=== PATIENT | female | born 1960 | race Caucasian/White ===

== ENCOUNTER → 2021-07-27 15:38 | Outpatient (BNVA) | payer MEDICAID, SELFPAY | PROVIDERS: Family Provider Registered Nurse; PCP Registered Nurse; Visit Provider Nurse Practitioner | DX: Z20.822 Contact with and (suspected) exposure to COVID-19 (principal) | CPT/HCPCS: 87635 ==

== ENCOUNTER → 2021-10-26 14:11 | Outpatient (BNVA) | payer MEDICARE, MEDICAID, SELFPAY | PROVIDERS: Family Provider Registered Nurse; PCP Registered Nurse; Referring Provider Family Medicine; Visit Provider Specialist | DX: M25.551 Pain in right hip (principal); M16.11 Unilateral primary osteoarthritis, right hip | CPT/HCPCS: 73502 ==

== ENCOUNTER 2021-12-17 07:13 | Outpatient (CLI) | payer MEDICARE, MEDICAID, SELFPAY ==
--- NOTE | 2021-12-17 07:18 | MR_ITS ---
WS: [id number] MRI RIGHT HIP without CONTRAST. COMPARISON: Hip radiograph 10/26/1999 Multiplanar, multisequence imaging is performed without contrast. Mild narrowing of the RIGHT hip joint. There is surface irregularity involving the cortex of the femo ral head and also the acetabulum which is asymmetric to the LEFT hip. There is very mild flattening o f the femoral head and a more focal osteophyte protruding laterally. With history of trauma this coul d be from an old injury. At this time no avascular necrosis is identified. There is a small amount of marrow edema in the medial anterior acetabulum. Small focal area of marrow edema in the adjacent medial femoral head. There is a lobulated cystic mass extending medially into the muscles surrounding the hip. There are multiple cystic components with small loose bodies within the lobulated mass. The largest component measures 3.9 x 2.3 cm. I favor this is probably a paralabra l cyst. The labrum demonstrates degeneration throughout. Exact source of the tear is not confirmed. The LEFT hip is negative. MR/MR hip RT wo con* [id number] IMPRESSION: 1. Moderate degenerative changes at the RIGHT hip joint. Loss of the normal ca rtilage with mild flattening of the femoral head and lateral osteophyte. These findings are asymmetric to the LEFT hip. 2. Large lobulated cystic mass with internal debris extends from the medial in ferior hip joint into the soft tissues. The largest component of this mass is 3 .9 x 2.3 cm. This is most likely paralabral cyst. Exact location of the tear is not evident. There is a very small trace of fluid extending into the hip joint along the inferior surface of the femoral head. 3. Small amount of marrow edema in the anteromedial acetabulum and adjacent me dial femoral head. Probably reactive from the joint space narrowing and repetit ac trauma.
== END 2021-12-17 07:14 | disposition home or self-care (01) ==
LOC: RAD 07:14
PROVIDERS: Family Provider Registered Nurse; PCP Family Medicine; Visit Provider Specialist
DX: M16.11 Unilateral primary osteoarthritis, right hip (principal); R60.0 Localized edema
CPT/HCPCS: 73721

== ENCOUNTER → 2022-06-23 10:48 | Outpatient (BNVA) | payer MEDICARE, MEDICAID, SELFPAY | PROVIDERS: Family Provider Registered Nurse; PCP Family Medicine; Visit Provider Specialist | DX: M16.11 Unilateral primary osteoarthritis, right hip (principal) | CPT/HCPCS: 73502; 99214 ==

== ENCOUNTER 2022-07-06 13:26 | Observation (INO) | payer MEDICARE, MEDICAID, SELFPAY ==
[2022-06-29 13:18] VITALS: BMI 23.8
[2022-06-29 13:39] LABS: Basophils # 0.1 10^3/uL (0.0-0.1); Basophils % 0.6 %; Eosinophils # 0.1 10^3/uL (0.0-0.8); Eosinophils % 0.6 %; Hematocrit 46.4 % (37.0-47.0); Hemoglobin 15.2 g/dL (11.5-15.3); Lymphocytes # 3.6 10^3/uL (0.8-4.8); Lymphocytes % 38.7 %; Mean Corpuscular HGB Conc 32.8 g/dL (30.0-36.0); Mean Corpuscular Hemoglobin 30.6 pg (28.0-34.0); Mean Corpuscular Volume 93.4 fl (81-99); Mean Platelet Volume 9.8 fL (7.4-10.4); Monocytes # 0.4 10^3/uL (0.2-0.9); Monocytes % 4.4 %; Neutrophils # 5.19 10^3/uL (1.8-7.7); Neutrophils % 55.5 %; Nucleated Red Blood Cells % 0 %; Platelet Count 273 10^3/cmm (130-400); Red Blood Count 4.97 10^6/uL (4.1-5.3); Red Cell Distribution Width 13.2 % (12.1-15.1); White Blood Count 9.4 10^3/uL (4.0-10.0)
[2022-06-29 13:51] LABS: Add Urine Culture? Yes; Add Urine Microscopic? YES; Bacteria Urine 2+ /hpf; Bilirubin Urine Neg (Negative); Blood Urine 2+ (Negative); Glucose Urine UA Norm (Normal); Ketones Urine Negative (Negative); Leukocyte Esterase Urine Negative (Negative); Nitrate Urine Negative (Negative); Protein Urine Neg (Negative); RBC Urine 0-4 /hpf (0-2); Squamous Epithelial Cell Urine 0-4 /hpf (0-5); Urine Appearance Clear (CLEAR); Urine Color Yellow (Yellow); Urobilinogen Urine Norm (Negative); WBC Urine 0-4 /hpf (0-5); pH Urine 7 (5-7)
[2022-06-29 14:09] LABS: Alanine Aminotransferase 12 U/L (0-33); Alkaline Phosphatase 115 U/L (35-105); Aspartate Amino Transferase 25 U/L (0-32); Blood Urea Nitrogen 9 mg/dL (8-23); Calcium 9.1 mg/dL (8.5-10.5); Carbon Dioxide 24 mmol/L (22-29); Chloride 99 mmol/L (98-107); Creatinine Clr Calc Pharmacy 72.3806; Globulin 2.8 g/dL (1.3-4.6); Glomerular Filtration Rate 85.4 mL/min (90-130); Glucose 84 mg/dL (65-115); Osmolality Calculated 276 mOsm/kg (285-295); Sodium 134 mmol/L (136-145); Total Bilirubin 0.3 mg/dL (0.15-1.2); Total Protein 6.8 g/dL (6.6-8.7)
[2022-06-29 14:12] LABS: Anion Gap 15.4 (5-19); Potassium 4.4 mmol/L (3.5-5.1)
--- NOTE | 2022-06-29 14:30 | ANES.PREANE2 ---
Pre-Anesthetic Assessment Height/Weight: Height 1.57 m Weight 58.967 kg Preop Diagnosis: OA right hip Operation Date: 07/06/22 10:50 Proposed Procedures p RIGHT TOTAL HIP ARTHROPLASTY 52829,M16.9(Right) - Tona Gannon MD Familial anesthetic complications: PONV Was Beta Fernando taken within 24 hours: N/A Was Clonidine taken within 24 hours: N/A Social No alcohol Former smoker Exam alert, oriented x 3, clear to auscultation bilaterally and regular rate & rhythm Airway Submandibular: within normal limits Cervical ROM: within normal limits Mallampati: Class I Dentition: false History/ROS No significant complaints Pulmonary None reported CV/HEM None reported METS > 4 None reported Hepatic None reported GI Gastroesophageal Reflux Disease (Well controlled ) Metabolic None reported Musc/skel None reported Neuropsych None reported Anesthetic Plan ASA status: 2 Anesthesia: Anesthesia Evaluation and General Other: We discussed risk and benefits of general vs spinal anesthesia including DVT risk, infection, paralysis/catastrophic nerve injury, back bruising/pain, PDPH, conversion to general in case of spinal, PONV, sore throat (sometimes severe), corneal abrasion, positioning and peripheral nerve injuries, life threatening allergic reaction, post operative ICU admission requiring prolonged intubation, stroke, heart attack, , post operative delirium and/or post operative cognitive decline, and rare incidences of recall (under general anesthesia). Patient prefers general anesthetic, plan multimodal anti-emetics for hx of PONV Risk of > 500 ml blood loss (7ml/kg in children): No Medications/Allergies Home Medications Medication Instructions Recorded Confirmed Last Taken Type naproxen 500 mg tablet 500 mg PO BID 10/26/21 06/29/22 Unknown History quetiapine 50 mg tablet 50 mg PO BID 06/29/22 06/29/22 Unknown History Allergies Allergy/AdvReac Type Severity Reaction Status Date / Time No Known Allergies Allergy Verified 06/23/22 10:53 [facility] Anesthesia Medical History Insomnia disorder Recurrent cold sores Smoking addiction Family History Other Cancer Hypertension Social History Smoking and tobacco status: current some day smoker Data Anesthesia : 06/29/22 13:23 06/29/22 13:23 Short CBC 06/29/22 Range/Units 13:23 WBC 9.4 (4.0-10.0) 10^3/uL Hgb 15.2 (11.5-15.3) g/dL Hct 46.4 (37.0-47.0) % MCV 93.4 (81-99) fl Plt Count 273 (130-400) 10^3/cmm Neut % (Auto) 55.5 % Neut # (Auto) 5.19 (1.8-7.7) 10^3/uL BMP 06/29/22 13:23 Sodium 134 L Potassium 4.4 Chloride 99 Carbon Dioxide 24 BUN 9 Creatinine 0.7 Glucose 84 Calcium 9.1 Liver Function 06/29/22 Range/Units 13:23 Total Bilirubin 0.3 (0.15-1.2) mg/dL AST 25 (0-32) U/L ALT 12 (0-33) U/L Alkaline Phosphatase 115 H (35-105) U/L Albumin 4.0 (3.5-5.2) g/dL Urine 06/29/22 Range/Units 13:23 Urine Color Yellow (Yellow) Urine Appearance Clear (CLEAR) Urine pH 7 (5-7) Ur Specific [place] 1.000 L (1.005-1.030) Urine Protein Neg (Negative) Urine Glucose (UA) Norm (Normal) Urine Ketones Negative (Negative) Urine Nitrate Negative (Negative) Urine Bilirubin Neg (Negative) Ur Leukocyte Esterase Negative (Negative) Urine RBC 0-4 H (0-2) /hpf Urine WBC 0-4 H (0-5) /hpf Cardiac Studies: No Data to Display
[2022-07-06] VITALS (21 sets, daily range): BP systolic 110–143; BP diastolic 63–90; PULSE 72–96; RESP 12–19; TEMP 36.1–36.6; O2SAT 92–100; BMI 23.8
--- NOTE | 2022-07-06 08:03 | P.ANESUD_ITS ---
Pre-Anesthetic Update Pre-Anesthetic Assessment: Date of Surgery/Procedure: 07/06/22 Preop Farideh gnosis: OA right hip Proposed Procedure: Operation Date: 07/06/22 10:50 Proposed Procedures p RIGHT TOTAL HIP ARTHROPLASTY 16318,M16.9(Right) - Tona Gannon MD Any changes to Pre-Anesthetic Assessment?: No Last Intake: 07/05/22 Exam: Pre-Anes Outpt Exam: alert, oriented x 3, clear to auscultation bilaterally and regular rate & rhythm Cardiac Studies: No Data to Display
[2022-07-06] MEDS: sodium chloride 0.9% 1,000 ML 30 ML IV (10:11)
[2022-07-06] MEDS: acetaminophen 1,000 MG/100 ML PIGGYBACK 400 MG IV ×2 (10:12→17:21)
[2022-07-06] MEDS: scopolamine 1.5 Patch 1 PATCH TRANSDERMA (10:13)
[2022-07-06] MEDS: CELEcoxib 200 mg Capsule 400 MG PO (10:13)
--- NOTE | 2022-07-06 10:42 | W.PM.OPSUD ---
Surgery/Procedure H&P Update DATE OF PROCEDURE: July 06, 2022 DATE H&P PERFORMED: 06/23/22 H&P UPDATE INFORMATION: I have reviewed H&P completed within last 30 days, I have examined patient prior to procedure, No changes to prior documentation and H&P is in [facility] EMR on date indicated PREOP DIAGNOSIS: Primary osteoarthritis right hip PLANNED PROCEDURE: Operation Date: 07/06/22 10:50 Proposed Procedures p RIGHT TOTAL HIP ARTHROPLASTY 56593,M16.9(Right) - Tona Gannon MD Related Problem List Diagnoses (1) Primary osteoarthritis of right hip:
[2022-07-06] MEDS: ceFAZolin 2,000 MG in sodium chloride 0.9% (plus) 50 ML 100 MG IV ×2 (10:44→18:35)
[2022-07-06] MEDS: magnesium sulfate premix 2 GM/50 ML PIGGYBACK IV (10:59)
[2022-07-06] MEDS: ceFAZolin 1,000 mg SDV 1000 MG IRRIGATION (11:40)
[2022-07-06] MEDS: vancomycin 1,000 MG SDV 1000 MG XX (11:40)
[2022-07-06] MEDS: tranexamic acid 1,000 mg/10mL SDV 1000 MG IV (12:18)
--- NOTE | 2022-07-06 13:08 | P.OP_ITS ---
Operative Report Date of procedure: July 06, 2022 Pre-op diagnosis: Primary osteoarthritis right hip Post-op diagnosis: Primary osteoarthritis right hip Post-op findings: Severe degenerative osteoarthritis right hip Procedure done: Right total hip arthroplasty Implants: The [place] total hip system with the following implants: A 52 mm by E Trident II solid back acetabular shell, an MDM cementless liner 42 mm inner diameter by E alpha code and Accolade II size 3 with 127 degree neck angle hip stem with a 28 mm outer diameter +0 mm neck offset and a mormon X3 insert size 28 mm inner diameter by 42E Specimens removed/disposition: Bone, disposed of Pathology: none sent Surgeon: Tona Gannon Senior Genetic Counselor: [facility] operating room technicians Anesthesia: General (Intubated, ASA 2) Estimated blood loss (mL): 300 IV fluids (mL): 800 Urine output (mL): 700 Complications: None Findings: There was significant degenerative osteoarthritis with small loose bodies upon entry into the hip joint. Following the surgical procedure, the hip is stable at 90 degrees of flexion with 30 degrees of adduction and 80 degrees of internal rotation. Leg lengths appear to be equal. Condition: stable Disposition: PACU (Then to floor for postoperative rehabilitation and pain management) Brief History: This is an established 61 year old female patient who presented to my office with severe right hip pain secondary to degenerative osteoarthritic changes. Upon initial evaluation, the patient had teeth that needed pulled, and this has been addressed. She describes significant limitations in her activities of daily living. Patient states she is having pain to the hip during every day activities such as walking. Patient states the pain increases at night with certain movements and she cannot sleep. The patient wished to proceed with operative intervention. Risks and complications were discussed with her. Consents were signed preoperatively, and questions were answered. Procedure: Patient was brought to the operating theater.? She was transferred to the operating room table.? The patient had a general anesthetic, intubated, ASA 2 uneventfully.? Following administration of adequate anesthesia, the patient was placed in full lateral position and held in position with a pegboard.? The patient's right lower extremity was then prepped and draped in usual fashion utilizing DuraPrep.? It was draped free.? Following prepping and draping, a surgical pause was performed. At the time of surgical pause, we identified the site and side of surgery.? We also identified the patient and preoperative surgical markings.? Confirmation was made of equipment availability.? Additionally, the patient's preoperative IV antibiotic, Ancef 2 g, was confirmed as being given in a timely fashion and being the appropriate antibiotic.? She received TXA 1 g preoperatively as well 1 g postoperatively. Following the surgical pause, an incision was made centering over the patient's greater trochanter continuing proximally and distally as necessary to allow access to the hip joint.? Dissection continued through skin and soft tissues using a scalpel, and hemostasis was obtained using electrocautery. The tensor fascia jose was identified and incised longitudinally.? Sciatic nerve was identified and protected throughout the surgical procedure.? A Charnley U retractor was placed after the tensor fascia jose had been incised longitudinally, and the sciatic nerve had been identified.? The piriformis muscle was identified and tagged. Piriformis muscle along with the remaining short external rotators were then incised from the posterior aspect of the hip joint. These were retracted posteriorly. ? The capsule was entered in a T-type fashion with the edges being tagged.? The hip was then dislocated. Following hip dislocation, a femoral neck osteotomy was accomplished in the appropriate position. We then evaluated the acetabulum.? We noted we were able to deepen slightly. Following femoral neck osteotomy, the femur was retracted anteriorly.? Soft tissues were retracted and the labrum was removed.? Soft tissues were removed from within the acetabulum prior to the reaming process.? We then began reaming.? We deepened the acetabulum utilizing a smaller reamer.? Evaluation of the acetabulum was accomplished, and we were able to ream to 51 mm to allow for a size 52 mm acetabular shell. The acetabular component was impacted into position. It was noted that the acetabulum matched the bony anatomy.? The cup was noted to seat nicely and had good fixation upon impact.? The MDM cementless liner was impacted into position and care was taken to assure that it completely seated.? Attention was directed to the proximal femur.? The proximal femur was lifted out of the wound with difficulty.? A canal finder was passed, and we then used the reamer to lateralize.? We then began broaching. We broached sequentially, and initially, trial reductions were accomplished with a size 4 stem. This was noted to be too tight for reduction, and it was felt that we would over lengthen the leg. Therefore, the size 3 broach was again used and seated further into the femoral canal. A calcar reamer was then used. With the size 3 broach, we had excellent fit and fill with the 127 degree neck angle.? A trial reduction was accomplished initially with a size +0 mm offset femoral head.? The patient was stable with this construct, and it was not felt that we had significantly increased her leg length.? With this in place, we had the above stabilities, and at that time, we felt that we had restored normal leg lengths.? We also felt that we had excellent stability noted above. Therefore, trial components were removed after the hip was dislocated.? The size 3 Accolade II 127 degree neck angle hip stem was impacted into position without difficulty and onto this was placed a +0 mm offset by 28 mm outer diameter femoral head inside of the MDM size 42E insert with a 28 mm inner diameter.? With this construct, we had the above-noted stability.? The stem was noted to seat nicely prior to placement of the femoral head.? The wound was copiously irrigated with Betadine.? At this time, with all components in appropriate position, the hip was reduced.? Following reduction of the prosthesis once again, we confirmed the stability of the hip.? Leg lengths were also felt to be satisfactory. Being satisfied with the prosthesis, attention was directed to closure.? Closure was accomplished with 0 Vicryl in the capsular tissues.? Piriformis was reattached with 0 Vicryl as well.? Tensor fascia jose was closed with 0 Vicryl in an interrupted fashion.? The subcutaneous tissues were closed with 1 deeper 0 Vicryl suture followed by 2-0 Monocryl.? Vancomycin powder and a Gelfoam thrombin mixture was placed into the wound as well.? The skin was closed with 4- 0 Monocryl followed by Dermabond, Prineo, and OpSite.? The patient was placed in an abduction pillow.? She was returned the Recovery Room in a satisfactory condition and will be discharged to the floor for postoperative rehabilitation and pain management.? There were no complications. Related Problem List Diagnoses (1) Primary osteoarthritis of right hip: (2) Status post total hip replacement, right:
--- NOTE | 2022-07-06 13:27 | XRR_ITS ---
PROCEDURE INFORMATION: Exam: XR Pelvis Exam date and time: 07/06/2022 1:33 PM Age: 61 years old Clinical indication: Device placement; Other: Right total hip; Prior surgery; Surgery date: Post-operative (0-2 days); Additional info: Status post right total hip, low ap pelvis TECHNIQUE: Imaging protocol: Radiologic exam of the pelvis. Views: 1 or 2 view. COMPARISON: CR XR hip RT 2-3V wo/w pel* [id number] 06/23/2022 10:55 AM FINDINGS: Bones/joints: The patient has had a right bipolar hip arthroplasty. Alignment of the prosthetic elements appears normal. No fracture. No dislocation. No periprosthetic lucency. Soft tissues: Postoperative soft tissue changes present. XR/XR pelvis 1-2V* [id number] IMPRESSION: Postoperative changes.
[2022-07-06] MEDS: fentaNYL 50 mcg/mL INJ 2mL IVP ×2 (13:55→14:19)
--- NOTE | 2022-07-06 16:18 | ANE.PACU2 ---
Inpatient post-anesthesia follow up: Airway intact: Yes Vital signs: Temperature 97.5 F Pulse Rate 83 Respiratory Rate 16 Blood Pressure 128/80 Pulse Oximetry 95 Oxygen Delivery Me thod Room Air Oxygen Flow Rate Fraction of Inspir ed Oxygen Hydration adequate: Yes Nausea and vomiting: No Pain level: 4 Mental status: Baseline
[2022-07-06] MEDS: iron polysaccharide complex 150 mg Capsule PO (17:21)
[2022-07-06] MEDS: sennosides-docusate Tablet 2 TAB PO (17:21)
[2022-07-06] MEDS: oxyCODONE 5 mg IR Tab/Cap PO (17:21)
[2022-07-06] MEDS: calcium carbonate 500 mg Chew Tablet 1000 MG PO (17:21)
[2022-07-06] MEDS: quetiapine 25 mg Tablet 50 MG PO (17:21)
[2022-07-06] MEDS: chlorhexidine gluconate 0.12% Btl 473 mL 30 ML MUCOUS MEM ×2 (18:34→22:09)
[2022-07-06] MEDS: mupirocin oint 22 gm 1 APPLIC NASAL (18:34)
[2022-07-06] MEDS: CELEcoxib 200 mg Capsule PO (22:10)
[2022-07-07] VITALS (7 sets, daily range): BP systolic 115–152; BP diastolic 70–78; PULSE 62–77; RESP 16–22; TEMP 36.4–36.8; O2SAT 95–99
[2022-07-07] MEDS: acetaminophen 1,000 MG/100 ML PIGGYBACK 400 MG IV ×2 (01:58→09:57)
[2022-07-07] MEDS: ceFAZolin 2,000 MG in sodium chloride 0.9% (plus) 50 ML 100 MG IV ×2 (02:09→10:21)
[2022-07-07 05:16] LABS: Basophils % 0.2 %; Hematocrit 41.4 % (37.0-47.0); Hemoglobin 13.3 g/dL (11.5-15.3); Lymphocytes # 2.3 10^3/uL (0.8-4.8); Lymphocytes % 17.6 %; Mean Corpuscular HGB Conc 32.1 g/dL (30.0-36.0); Mean Corpuscular Hemoglobin 30.7 pg (28.0-34.0); Mean Corpuscular Volume 95.6 fl (81-99); Mean Platelet Volume 9.7 fL (7.4-10.4); Monocytes # 1.2 10^3/uL (0.2-0.9); Monocytes % 9.1 %; Neutrophils # 9.42 10^3/uL (1.8-7.7); Neutrophils % 72.8 %; Nucleated Red Blood Cells % 0 %; Platelet Count 275 10^3/cmm (130-400); Red Blood Count 4.33 10^6/uL (4.1-5.3); Red Cell Distribution Width 13.6 % (12.1-15.1); White Blood Count 12.9 10^3/uL (4.0-10.0)
[2022-07-07 05:33] LABS: Anion Gap 15.6 (5-19); Blood Urea Nitrogen 10 mg/dL (8-23); Calcium 8.7 mg/dL (8.5-10.5); Carbon Dioxide 21 mmol/L (22-29); Chloride 103 mmol/L (98-107); Glomerular Filtration Rate 73.2 mL/min (90-130); Glucose 121 mg/dL (65-115); Osmolality Calculated 280 mOsm/kg (285-295); Potassium 4.6 mmol/L (3.5-5.1); Sodium 135 mmol/L (136-145)
[2022-07-07] MEDS: oxyCODONE 5 mg IR Tab/Cap PO ×2 (08:01→15:03)
[2022-07-07] MEDS: multivitamin therapeutic Tablet 1 TAB PO (08:46)
[2022-07-07] MEDS: cholecalciferol (vitamin D3) 1,000 unit Tablet 1000 UNIT PO (08:46)
[2022-07-07] MEDS: aspirin 325 mg EC Tablet PO (08:46)
[2022-07-07] MEDS: sennosides-docusate Tablet 2 TAB PO (08:46)
[2022-07-07] MEDS: calcium carbonate 500 mg Chew Tablet 1000 MG PO (08:46)
[2022-07-07] MEDS: iron polysaccharide complex 150 mg Capsule PO (08:46)
[2022-07-07] MEDS: quetiapine 25 mg Tablet 50 MG PO (08:47)
[2022-07-07] MEDS: CELEcoxib 200 mg Capsule PO (08:47)
[2022-07-07] MEDS: mupirocin oint 22 gm 1 APPLIC NASAL (08:49)
[2022-07-07] MEDS: chlorhexidine gluconate 0.12% Btl 473 mL 30 ML MUCOUS MEM (08:49)
--- NOTE | 2022-07-07 13:36 | P.DS_ITS ---
Discharge Providers Date of Admission: 07/06/22 13:26 Date of Discharge: July 07, 2022 Attending Provider at Admission: Tona Gannon MD Attending Provider at Discharge: Tona Gannon MD Primary Care Provider: Parker Garveyno Diagnoses at Discharge Discharge Diagnosis (1) Primary osteoarthritis of right hip: Status: Acute (2) Status post total hip replacement, right: Status: Acute Permanent problem details: Date of procedure: July 06, 2022 Diagnosis: Primary osteoarthritis right hip Procedure done: Right total hip arthroplasty Implants: The [place] total hip system with the following implants: A 52 mm by E Trident II solid back acetabular shell, an MDM cementless liner 42 mm inner diameter by E alpha code and Accolade II size 3 with 127 degree neck angle hip stem with a 28 mm outer diameter +0 mm neck offset and a scientologist X3 insert size 28 mm inner diameter by 42E Reason for Visit Reason for Visit: Brief History: This is an established 61 year old female patient who presented to my office with severe right hip pain secondary to degenerative osteoarthritic changes.? Upon initial evaluation, the patient had teeth that needed pulled, and this has been addressed.? She describes significant limitations in her activities of daily living.? Patient states she is having pain to the hip during every day activities such as walking. Patient states the pain increases at night with certain movements and she cannot sleep.? The patient wished to proceed with operative intervention.? Risks and complications were discussed with her.? Consents were signed preoperatively, and questions were answered. Hospital Course Hospital Course Patient was admitted following same-day surgery for right total hip arthroplasty. The procedure was well-tolerated. She was admitted to the floor postoperatively under observation status. On the first postoperative day, she was working with physical therapy and with nursing to ambulate independently. She was felt to be safe for discharge to home. Her thigh was benign. There is no significant erythema or evidence of DVT. Patient was therefore discharged to follow-up with me at home as previously arranged. Physical Exam Const: COMMON NORMALS: no acute distress, average body habitus, patient oriented x3 and alert GENERAL APPEARANCE: cooperative and comfortable ORIENTATION/CONSCIOUSNESS: Yes awake HENMT: COMMON NORMALS: normocephalic and atraumatic HEAD & SCALP: normocephalic and atraumatic Eye: GENERAL EYE: appearance normal, both eyes and all related structures Chest: COMMONS NORMALS: normal inspection of the chest Resp: COMMON NORMALS: normal respiratory effort EFFORT & INSPECTION: Yes able to speak in complete sentences and Yes symmetric chest movement Extremity: RIGHT LOWER EXTREMITY: Yes hip joint (Dressing remains intact and is dry.) Right hip: Yes inspection (No erythema or significant bruising.), Yes palpation (Minimal tenderness.), Yes ROM (Not evaluated) and Yes neurovascular exam (Intact distally with no evidence of DVT) Neuro: COMMON NORMALS: patient oriented x3 SENSORIUM/ORIENTATION: Yes alert Psych: COMMON NORMALS: mental status grossly normal APPEARANCE: Yes grossly normal ATTITUDE: Yes calm and Yes engaged ATTENTION/CONCENTRATION: Yes attention grossly intact Skin: COMMON NORMALS: no rashes or lesions noted GENERAL SKIN EXAM: no rashes or lesions noted Urinary Catheter Management: Aguilera: Cath Placed During This Visit: yes, but has since been removed by the nurse Reason for Continuing Indwelling Catheter: Decision to DC Catheter Urinary Catheter Date of Insertion: 07/06/22 Urinary Catheter Time of Insertion: 11:00 Date Urinary Catheter Removed: 07/07/22 Time Urinary Catheter Discontinued: 05:00 Discharge Data Studies Completed and Pending Completed Studies During Hospitalization Category Date Time Status XR pelvis 1-2V* [id number] Routine Exams 07/06/22 13:27 Completed Radiology Impressions Pelvis X-Ray 07/06/22 13:27 IMPRESSION: Postoperative changes. Laboratory Results WBC 12.9 10^3/uL (4.0-10.0) H 07/07/22 04:56 RBC 4.33 10^6/uL (4.1-5.3) 07/07/22 04:56 Hgb 13.3 g/dL (11.5-15.3) 07/07/22 04:56 Hct 41.4 % (37.0-47.0) 07/07/22 04:56 MCV 95.6 fl (81-99) 07/07/22 04:56 MCH 30.7 pg (28.0-34.0) 07/07/22 04:56 MCHC 32.1 g/dL (30.0-36.0) 07/07/22 04:56 RDW 13.6 % (12.1-15.1) 07/07/22 04:56 Plt Count 275 10^3/cmm (130-400) 07/07/22 04:56 MPV 9.7 fL (7.4-10.4) 07/07/22 04:56 Neut % (Auto) 72.8 % 07/07/22 04:56 Lymph % (Auto) 17.6 % 07/07/22 04:56 [place] % (Auto) 9.1 % 07/07/22 04:56 Eos % (Auto) 0.0 % 07/07/22 04:56 Baso % (Auto) 0.2 % 07/07/22 04:56 Neut # (Auto) 9.42 10^3/uL (1.8-7.7) H 07/07/22 04:56 Lymph # (Auto) 2.3 10^3/uL (0.8-4.8) 07/07/22 04:56 [place] # (Auto) 1.2 10^3/uL (0.2-0.9) H 07/07/22 04:56 Eos # (Auto) 0.0 10^3/uL (0.0-0.8) 07/07/22 04:56 Baso # (Auto) 0.0 10^3/uL (0.0-0.1) 07/07/22 04:56 Nucleated RBC % (auto) 0 % 07/07/22 04:56 Nucleated RBCs # 0.0 /100WBC 07/07/22 04:56 Sodium 135 mmol/L (136-145) L 07/07/22 04:56 Potassium 4.6 mmol/L (3.5-5.1) 07/07/22 04:56 Chloride 103 mmol/L (98-107) 07/07/22 04:56 Carbon Dioxide 21 mmol/L (22-29) L 07/07/22 04:56 Anion Gap 15.6 (5-19) 07/07/22 04:56 BUN 10 mg/dL (8-23) 07/07/22 04:56 Creatinine 0.8 mg/dL (0.5-0.9) 07/07/22 04:56 GFR Calculation 73.2 mL/min (90-130) L 07/07/22 04:56 Glucose 121 mg/dL (65-115) H 07/07/22 04:56 Calculated Osmolality 280 mOsm/kg (285-295) L 07/07/22 04:56 Calcium 8.7 mg/dL (8.5-10.5) 07/07/22 04:56 Total Bilirubin 0.3 mg/dL (0.15-1.2) 06/29/22 13:23 AST 25 U/L (0-32) 06/29/22 13:23 ALT 12 U/L (0-33) 06/29/22 13:23 Alkaline Phosphatase 115 U/L (35-105) H 06/29/22 13:23 Total Protein 6.8 g/dL (6.6-8.7) 06/29/22 13: Albumin 4.0 g/dL (3.5-5.2) 06/29/22 13: Globulin 2.8 g/dL (1.3-4.6) 06/29/22 13:23 Urine Color Yellow (Yellow) 06/29/22 13: Urine Appearance Clear (CLEAR) 06/29/22 13:23 Urine pH 7 (5-7) 06/29/22 13:23 Ur Specific [place] 1.000 (1.005-1.030) L 06/29/22 13:23 Urine Protein Neg (Negative) 06/29/22 13:23 Urine Glucose (UA) Norm (Normal) 06/29/22 13:23 Urine Ketones Negative (Negative) 06/29/22 13:23 Urine Blood 2+ (Negative) H 06/29/22 13:23 Urine Nitrate Negative (Negative) 06/29/22 13:23 Urine Bilirubin Neg (Negative) 06/29/22 13:23 Urine Urobilinogen Norm mg/dL (Negative) 06/29/22 13:23 Ur Leukocyte Esterase Negative (Negative) 06/29/22 13:23 Urine RBC 0-4 /hpf (0-2) H 06/29/22 13:23 Urine WBC 0-4 /hpf (0-5) H 06/29/22 13:23 Ur Squamous Epith Cells 0-4 /hpf (0-5) H 06/29/22 13:23 Amorphous Sediment Not Reportable 06/29/22 13:23 Urine Bacteria 2+ /hpf (NONE) H 06/29/22 13:23 Vitals Last Vital Signs Temp 98.2 F 07/07/22 11:23 Pulse 70 07/07/22 11:23 Resp 16 07/07/22 11:23 BP 116/71 07/07/22 11:23 Pulse Ox 99 07/07/22 11:23 O2 Del Method 07/07/22 08:42 Discharge Plan Discharge Patient Disposition: Home Health Service Condition: Stable Prescriptions: New acetaminophen 500 mg Tablet 1,000 mg PO Q8H 15 Days Qty: 90 0RF aspirin 325 mg Tablet,Delayed Release (Dr/Ec) 325 mg PO DAILY 30 Days Qty: 30 0RF oxycodone 5 mg Tablet 5 mg PO Q4H PRN (Reason: Moderate Pain) 7 Days Qty: 30 0RF Continued naproxen 500 mg tablet 500 mg PO BID sulfamethoxazole-trimethoprim [Bactrim DS] 800-160 mg tablet 1 tab PO BID Qty: 20 0RF quetiapine 50 mg tablet 50 mg PO BID Discharge Orders: Discharge Order (Routine); Ordered 07/07/22 Ordered By: Tona Gannon Other Ambulatory Orders: DME: Walker (Order) Location: None Selected Ordered By: Tona Gannon Referrals: [facility] ([facility]) [Outside] Tona Gannon MD [Physician] - 07/19/22 2:00 pm Discharge Diet: Advance as tolerated and Usual diet Discharge Activity: Resume usual activity, Increase activity as tolerated, Limit activity as instructed, Use walker/crutches as instructed and As per PT/OT instructions Patient Instructions: Acetaminophen (By mouth), Aspirin (By mouth), Oxycodone, Rapid Release (By mouth), Total Hip Replacement (DC) Activity Restrictions/Additional Instructions: Posterior hip precautions. Gait training, range of motion, and strengthening per physical therapy. Weightbearing as tolerated. Maintain clear plastic dressing, but you may shower without soaking. Discharge Attestations Time Spent in Discharge Care*: greater than 30 min Specific Discharge Activities: educating patient, documenting/other paperwork and evaluating patient/reviewing data Quality Metrics Clinical Quality Measures [ No reported AMI, CVA or VTE this stay] Coding Level of Care Code Acute Chg FW DC note Diagnoses Primary osteoarthritis of right hip M16.11 Status post total hip replacement, right Z96.641
--- NOTE | 2022-07-07 14:04 | PC.CHAP ---
Pastoral Care Encounter/Spiritual Assessment Type of Contact [] Declined pharm spec visit [] Patient/Family/Request visit [] Outpatient visit [] Follow-up visit [] Physician referral [] Code/Alert [x] Routine visit [] Staff referral [] Actively dying [] Patient sleeping [] Family support [] [] Out of room [] Palliative care [] [] Receiving care in room [] Pre-surgical visit [] Trauma [] Long length of stay [] ICU visit [] Other: Relational/Emotional Strength [x] Patient feels connected with others/family/visitors/staff [] Distress [] Loneliness/isolation [] Abandonment Spirituality of Patient x [x] Person of Cinda [] Attends Hoahaoism of their Cinda [x] Believes in Prayer [] Reads Bible or Quaker materials [] There are Spiritual issues to be addressed [employer] [x] Prayer [] Active listening [] Non-anxious presence [] Spiritual/emotional support [] Crisis/trauma care [] Spiritual counseling [] Bereavement support [] Provided bereavement packet [] Provided Bible/devotional materials [] Provided toy/stuffed animal, coloring book to patient or family member [] Provided Communion [] Anointing/[place] [] Salvation [x] Completed spiritual assessment [] Other: Impact on Illness or Injury [] Angry [] Fearful [] Anxious [] Often cries [] Exhaustion [] Unable to work [] Unable to attend rastafarian [] Unable to walk/stand [] Unable to read [] Unable to drive [] Unable to eat/drink [] Unable to sleep [] Unable to be with family [] Patient intubated [] Other: Summary Time spent with patient 10min
--- NOTE | 2022-07-07 15:27 | PC.NURSE ---
IV removed intact . Patient tolerated well. Patient is A&Ox3. Respirations even and non-labored on room air. Reviewed discharge with patient. Patient verbalized understanding of discharge instructions and follow up appointments. Patient assisted into wheel chair and pushed to private car.
== END 2022-07-07 15:00 | disposition home health service (06) ==
LOC: MEDSURG 13:26
PROVIDERS: Admitting Provider Specialist; PCP Family Medicine; Visit Provider Specialist
PROC: (CPT 27130; principal; 2022-07-06 10:30)
DX: M16.11 Unilateral primary osteoarthritis, right hip (principal); K21.9 Gastro-esophageal reflux disease without esophagitis; F17.210 Nicotine dependence, cigarettes, uncomplicated
CPT/HCPCS: 27130; 36415; 51702; 72170; 80048; 80053; 81001; 85025; 87086; 97110; 97116; 97161; 97165; 97530; C1713; C1776; G0378; J0330; J0690; J1100; J1170; J1200; J2250; J2405; J2710; J3010; J3370; J3475; J3490; J7030

== ENCOUNTER → 2022-07-19 14:20 | Outpatient (BNVA) | payer MEDICARE, MEDICAID, SELFPAY | PROVIDERS: PCP Family Medicine; Visit Provider Nurse Practitioner Family | DX: Z47.1 Aftercare following joint replacement surgery (principal); Z96.641 Presence of right artificial hip joint | CPT/HCPCS: 73502; 99024 ==

== ENCOUNTER → 2022-08-16 14:31 | Outpatient (BNVA) | payer MEDICARE, MEDICAID, SELFPAY | PROVIDERS: PCP Family Medicine; Visit Provider Nurse Practitioner Family | DX: Z96.641 Presence of right artificial hip joint (principal) | CPT/HCPCS: 73502; 99024 ==

== ENCOUNTER → 2022-11-09 11:50 | Outpatient (BNVA) | payer MEDICARE, MEDICAID, SELFPAY | PROVIDERS: PCP Family Medicine; Visit Provider Nurse Practitioner Family | DX: Z96.641 Presence of right artificial hip joint (principal) | CPT/HCPCS: 73502; 99213 ==

== ENCOUNTER → 2023-10-28 09:16 | Outpatient (BNVA) | payer MEDICARE, MEDICAID, SELFPAY | PROVIDERS: PCP Family Medicine; Visit Provider Nurse Practitioner | DX: Z96.641 Presence of right artificial hip joint (principal) | CPT/HCPCS: 73502; 99213 ==